=== PATIENT | female | born 1990 | race Caucasian/White ===

== ENCOUNTER 2016-10-18 23:00 | Emergency (ER) | payer MEDICAID ==
[~2016-10-18] VITALS: Ht 157.5 cm; Wt 63.5 kg
[~2016-10-18 23:00] MED LIST: PRENATAL1 TA3 PO
[2016-10-18 23:13] VITALS: BP 110/69
--- NOTE | 2016-10-18 23:39 | NUR ---
Keira archer in [facility] - 10/18/16 at 2341 by TRENA PATIENT AMBULATED TO ER OF 1
--- NOTE | 2016-10-18 23:40 | NUR ---
TO ER OF1
--- NOTE | 2016-10-18 23:41 | NUR ---
26 Y/O HERE C/O FREQUENCY AND BURNING WITH URINATION X 1 DAY. DENIES ANY N/V, FEVER, FLANK PAIN OR CHILLS. NO DISTRESS NOTED AT THIS TIME. ER MD EVALUATING PT.
--- NOTE | 2016-10-18 23:41 | NUR ---
Patient being evaluated by physician.
[2016-10-18] MEDS ORDERED: PHENAZOPYRIDINE 100 MG TAB PO ONE (23:45)
[2016-10-18] MEDS ORDERED: SULFAMETH/TRIMETH DS 800/160MG 1 TAB PO ONE (23:45)
[2016-10-19 00:02] VITALS: BP 110/69
--- NOTE | 2016-10-19 00:02 | NUR ---
Patient discharged with v/s stable. Written and verbal after care instructions given and explained. Patient alert, oriented and verbalized understanding of instructions. Ambulatory with steady gait. All questions addressed prior to discharge. ID band removed. Patient advised to follow up with PMD. Rx of BACTRIM AND PYRIDIUM given. Patient educated on indication of medication including possible reaction and side effects. Opportunity to ask questions provided and answered.
== END 2016-10-19 00:02 | disposition home or self-care (01) ==
LOC: MED 23:00
DX: N39.0 Urinary tract infection, site not specified (principal); R03.0 Elevated blood-pressure reading, without diagnosis of hypertension

== ENCOUNTER 2017-03-07 11:22 | Emergency (ER) | payer MEDICAID ==
[~2017-03-07] VITALS: Ht 160 cm; Wt 66.7 kg
[~2017-03-07 11:22] MED LIST changes: +PREN-156 PO; -PRENATAL1 TA3 PO
[2017-03-07 11:26] VITALS: BP 128/75
--- NOTE | 2017-03-07 12:17 | NUR ---
APATIENT PRESENTS TO ED WITH c/o extremely anxious, flight of ideas, palpitations, tremulous, sob, nausea x 1 hr ago;hx OF anxiety; PT STATES SHE'S NERVOUS AND HER FEET KEEPS ON SHAKING; SKIN IS PINK/WARM/DRY; AAOX4 WITH EVEN AND STEADY GAIT; LUNGS CLEAR BL; HR EVEN AND REGULAR; DENIES FEVER AND COUGH AT THIS TIME; PATIENT STATES PAIN OF 6/10 CP AT THIS TIME;PATIENT POSITIONED FOR COMFORT; HOB ELEVATED; BEDRAILS UP X2; BED DOWN.ALL MONITORS IN PLACED.
--- NOTE | 2017-03-07 12:40 | NUR ---
Keira archer in ED - 03/07/17 at 1300 by DANIEL ER MD AT BEDSIDE.
--- NOTE | 2017-03-07 12:48 | NUR ---
AMBULATED TO THECRESTROOM ACCOMAPNIED BY HER BOYFRIEND.
--- NOTE | 2017-03-07 13:00 | NUR ---
JACK FLANAGAN AT BEDSIDE.
[2017-03-07 13:07] VITALS: BP 115/73
== END 2017-03-07 13:06 | disposition home or self-care (01) ==
LOC: MED 11:22
DX: R00.2 Palpitations (principal); R07.9 Chest pain, unspecified
CPT/HCPCS: 81002; 81025; 93005; 99283

== ENCOUNTER 2018-07-30 20:03 | Emergency (ER) | payer MEDICAID ==
[~2018-07-30] VITALS: Ht 157.5 cm; Wt 66.7 kg
[2018-07-30 20:10] VITALS: BP 154/91
--- NOTE | 2018-07-30 20:13 | NUR ---
EKG PERFORMED IN TRIAGE ROOM WITH BLINDS DRAWN AND RENAY LAUGHLIN
--- NOTE | 2018-07-30 20:20 | NUR ---
pt to lobby steady gait
--- NOTE | 2018-07-30 20:43 | NUR ---
AMBULATED TO ER BED 6
--- NOTE | 2018-07-30 20:45 | NUR ---
PT PRESENTED ER WITH C/O VHEST, ARM PAIN X 5 DAYS. PT STATED THAT SHE HAS ARM PAIN BILATERAL AND RADIATES TO THE CHEST. PT STATES IT IS TENDER TO TOUCH, FEELS LIKE PALPUTATIONS, TIRES QUICKLY, HAS DRY MOUTH. PT DENIES FEVER AND ABD PAIN. PT IS A/O X 4. PT HAS NO PREVIOUS MEDICAL HX AND NKA. SKIN IS PINK/WARM/DRY;STEADY GAIT; LUNGS CLEAR BL; VSS; PATIENT POSITIONED FOR COMFORT; HOB ELEVATED; BEDRAILS UP X2; BED DOWN. ER MD MADE AWARE OF PT STATUS. Addendum: 07/30/18 at 2124 by [email or web address] PT PRESENTED ER WITH C/O CHEST, ARM PAIN X 5 DAYS. PT STATED THAT SHE HAS ARM PAIN BILATERAL AND RADIATES TO THE CHEST. PT STATES IT IS TENDER TO TOUCH, FEELS LIKE PALPUTATIONS, TIRES QUICKLY, HAS DRY MOUTH. PT DENIES FEVER AND ABD PAIN. PT IS A/O X 4. PT HAS NO PREVIOUS MEDICAL HX AND NKA. SKIN IS PINK/WARM/DRY;STEADY GAIT; LUNGS CLEAR BL; VSS; PATIENT POSITIONED FOR COMFORT; HOB ELEVATED; BEDRAILS UP X2; BED DOWN. ER MD MADE AWARE OF PT STATUS.
--- NOTE | 2018-07-30 21:30 | NUR ---
PT SITTING UP IN BED, VITALS STABLE
[2018-07-30] MEDS ORDERED: KETOROLAC 30 MG/ML VIAL IM ONE (21:40)
[2018-07-30 22:56] LABS: BASOPHILS % (AUTO) 0.4 % (0.0-2.0); EOSINOPHILS # (AUTO) 0.1 K/uL (0-0.4); EOSINOPHILS % (AUTO) 1.3 % (0.0-4.0); HEMATOCRIT 36.9 % (36-48); HEMOGLOBIN 12.3 g/dL (12.0-16.0); LYMPHOCYTES # (AUTO) 2.2 K/uL (2.5-16.5); LYMPHOCYTES % (AUTO) 25.6 % (20.5-51.1); MEAN CORPUSCULAR HEMOGLOBIN 29 pg (27-31); MEAN CORPUSCULAR HGB CONC 33 g/dL (33-37); MEAN CORPUSCULAR VOLUME 87.8 fL (80-94); MONOCYTES # (AUTO) 0.5 K/uL (0.8-1.0); MONOCYTES % (AUTO) 5.6 % (1.7-9.3); NEUTROPHILS # (AUTO) 5.9 K/uL (1.8-7.7); NEUTROPHILS % (AUTO) 67.1 % (42.2-75.2); PLATELET COUNT (AUTO) 193 K/uL (140-450); RED CELL DISTRIBUTION WIDTH 12.9 % (11.6-13.7); WHITE BLOOD COUNT (AUTO) 8.7 K/uL (4.8-10.8)
[2018-07-30 23:15] LABS: ALBUMIN 3.9 g/dL (3.4-5.0); ANION GAP 14.2 (8-16); CARBON DIOXIDE 27.6 mmol/L (21-32); CREATININE 0.7 mg/dL (0.6-1.3); POTASSIUM 3.8 mmol/L (3.5-5.1); TOTAL BILIRUBIN 0.7 mg/dL (0.0-1.0)
[2018-07-30 23:19] LABS: CREATINE KINASE MB 0.3 ng/mL (0-3.6)
[2018-07-30 23:45] VITALS: BP 104/68
--- NOTE | 2018-07-30 23:45 | NUR ---
Patient discharged with v/s stable. Written and verbal after care instructions given and explained. Patient alert, oriented and verbalized understanding of instructions. Ambulatory with steady gait. All questions addressed prior to discharge. ID band removed. Patient advised to follow up with PMD. Rx of NAPROSYN AND ATIVAN WAS given. Patient educated on indication of medication including possible reaction and side effects. Opportunity to ask questions provided and answered.
--- NOTE | 2018-07-31 00:29 | NUR ---
Keira archer in ED - 07/31/18 at 0054 by JOSEFINA TEMP 97.7 AXILLARY AT THIS TIME.
== END 2018-07-30 23:45 | disposition home or self-care (01) ==
LOC: MED 20:03
DX: R07.89 Other chest pain (principal); R51 Headache; R42 Dizziness and giddiness; R11.0 Nausea; Z87.442 Personal history of urinary calculi
CPT/HCPCS: 36415; 71045; 80053; 81002; 81025; 82550; 82553; 84484; 85025; 93005; 96372; 99284; J1885; Q0092

== ENCOUNTER 2018-08-03 05:50 | Emergency (ER) | payer MEDICAID ==
[~2018-08-03] VITALS: Ht 157.5 cm; Wt 68.2 kg
[2018-08-03 05:57] VITALS: BP 101/61
[2018-08-03] MEDS ORDERED: ATI.5 PO (06:01)
--- NOTE | 2018-08-03 06:05 | NUR ---
PT BIB FAMILY C/O UTI S/S X 1DAY. PT DENIES N/V/D; SKIN IS INTACT, PINK/WARM/DRY; AAOX4, PERRL, WITH EVEN AND STEADY GAIT; LUNGS CLEAR BL, BREATHING UNLABORED; HR EVEN AND REGULAR, BL PERIPHERAL PULSES PRESENT; BS ACTIVE X4, NO TENDERNESS TO PALPATION. PT DENIES ANY FEVER, CP, SOB, OR COUGH AT THIS TIME; PT STATES 4/10 PAIN AT THIS TIME; VSS; PATIENT POSITIONED FOR COMFORT; HOB ELEVATED; BEDRAILS UP X2; BED DOWN.
--- NOTE | 2018-08-03 06:05 | NUR ---
PT TAKEN TO BED 2
--- NOTE | 2018-08-03 06:08 | NUR ---
Dr. Mandel evaluating patient at bedside.
[2018-08-03] MEDS ORDERED: PHENAZOPYRIDINE 100 MG TAB PO ONE (06:10)
[2018-08-03] MEDS ORDERED: SULFAMETH/TRIMETH DS 800/160MG 1 TAB PO ONE (06:10)
[2018-08-03 06:51] VITALS: BP 100/62
--- NOTE | 2018-08-03 06:52 | NUR ---
Patient discharged with v/s stable. Written and verbal after care instructions given and explained. Patient alert, oriented and verbalized understanding of instructions. Ambulatory with steady gait. All questions addressed prior to discharge. ID band removed. Patient advised to follow up with PMD. Rx of bactrim ds, pyridium given. Patient educated on indication of medication including possible reaction and side effects. Opportunity to ask questions provided and answered.
== END 2018-08-03 06:52 | disposition home or self-care (01) ==
LOC: MED 05:50
DX: N39.0 Urinary tract infection, site not specified (principal); Z79.899 Other long term (current) drug therapy
CPT/HCPCS: 81002; 81025; 99283

== ENCOUNTER 2018-08-11 22:30 | Emergency (ER) | payer MEDICAID ==
[~2018-08-11] VITALS: Ht 157.5 cm; Wt 68.0 kg
[~2018-08-11 22:30] MED LIST changes: +ATI.5 PO; -PREN-156 PO
[2018-08-11 22:39] VITALS: BP 98/64
[2018-08-11 23:24] LABS: APPEARANCE,URINE HAZY (CLEAR); BILIRUBIN,URINE NEGATIVE (NEGATIVE); BLOOD, URINE TRACE-I (NEGATIVE); COLOR,URINE YELLOW (YELLOW); LEUKOCYTE ESTERASE ,URINE TRACE (NEGATIVE); NITRITE, URINE POSITIVE (NEGATIVE); UGLUCOSE NEGATIVE (NEGATIVE)
[2018-08-11 23:34] LABS: RBC,URINE 0-5 (RARE) /HPF (0-5); WBC,URINE 20-60 /HPF (0-5)
[2018-08-12] MEDS ORDERED: cefTRIAXone 1,000 MG in LIDOCAINE MPF 1% - 5 mL VIAL 2.1 ML IM ONE (01:25)
[2018-08-12 01:54] VITALS: BP 108/70
== END 2018-08-12 01:54 | disposition home or self-care (01) ==
LOC: MED 22:30
DX: N39.0 Urinary tract infection, site not specified (principal); F41.0 Panic disorder [episodic paroxysmal anxiety]; Z79.899 Other long term (current) drug therapy
CPT/HCPCS: 81001; 81025; 87086; 96372; 99283; J0696; J2001; 87186

== ENCOUNTER 2018-12-14 17:50 | Emergency (ER) | payer MEDICAID ==
[~2018-12-14] VITALS: Ht 157.5 cm; Wt 65.8 kg
[2018-12-14 17:50] VITALS: BP 134/73
--- NOTE | 2018-12-14 18:03 | NUR ---
Patient ambulated to bed 7. RN evaluating patient at bedside.
--- NOTE | 2018-12-14 18:15 | NUR ---
28 YO/F BIB SELF WITH CHIEF C/O INTERMITTENT CHEST PAIN X2 WEEKS (PRESSURE/TIGHTNESS LASTING APPROX 2-3 SECS). PT DENIES ANY PAIN AT THIS TIME. COUGH PRESENT WITH WHITE PLEGM. CLEAR LUNG SOUNDS BILATERALLY. DENIES SOB. PT NOTED WITH CHILLS, TEMP 98.6.
[2018-12-14] MEDS ORDERED: ALUMINUM HYD/MAG/SIMETHICONE 30 ML UDC PO ONE (18:20)
[2018-12-14] MEDS ORDERED: FAMOTIDINE 20 MG TAB PO ONE (18:20)
--- NOTE | 2018-12-14 19:02 | NUR ---
X RAY AT BEDSIDE
--- NOTE | 2018-12-14 19:12 | NUR ---
Pt report given to RENAY Cole. Transfer of care at this time.
[2018-12-14] MEDS ORDERED: LORazepam 1 MG TAB PO ONE (19:45)
--- NOTE | 2018-12-14 19:52 | NUR ---
PT REFUSED MEDICATION AT THIS TIME, ER MD AWARE.
[2018-12-14 20:14] LABS: ANION GAP 8.9 (8-16); CARBON DIOXIDE 29.7 mmol/L (21-32); CREATININE 0.6 mg/dL (0.6-1.3); POTASSIUM 3.6 mmol/L (3.5-5.1)
--- NOTE | 2018-12-14 21:15 | NUR ---
Patient discharged with v/s stable. Pateint states she is ready to go home, patient acting appropriatly. Patient states 0/10 pain at this time. Written and verbal after care instructions given and explained. Patient alert, oriented and verbalized understanding of instructions. Ambulatory with steady gait. All questions addressed prior to discharge. ID band removed. Patient advised to follow up with PMD. Rx of Guaiatussin, and Mylanta given. Patient educated on indication of medication including possible reaction and side effects. Opportunity to ask questions provided and answered.
[2018-12-14 21:18] VITALS: BP 112/73
== END 2018-12-14 21:15 | disposition home or self-care (01) ==
LOC: MED 17:50
DX: R07.89 Other chest pain (principal); F41.9 Anxiety disorder, unspecified; Z79.899 Other long term (current) drug therapy
CPT/HCPCS: 36415; 71045; 80048; 81025; 85379; 93005; 99284; Q0092

== ENCOUNTER 2019-04-11 11:11 | Emergency (ER) | payer MEDICAID ==
[~2019-04-11] VITALS: Ht 157.5 cm; Wt 64.1 kg
[2019-04-11 11:18] VITALS: BP 118/82
[2019-04-11] MEDS ORDERED: ONDANSETRON 4 MG/2 ML VIAL IVP ONE (12:25)
[2019-04-11] MEDS ORDERED: MORPHINE SULFATE 4 MG/ML SYR IVP ONE (12:25)
--- NOTE | 2019-04-11 12:36 | NUR ---
PT PRESENTS TO ED WITH C/O ABD PAIN SINCE 03:00 THIS MORNING. PT REPORTS BURNING EPIGASTRIC PAIN AT 10/10, TX W/ ANTACID W/ NO RELIEF. REPORTS N/V/D. DENIES FEVER; AFEBRILE AT THIS TIME. MEDHX:DENIES RX:VITAMIN D
[2019-04-11 12:48] LABS: BASOPHILS % (AUTO) 0.2 % (0.0-2.0); EOSINOPHILS % (AUTO) 0.3 % (0.0-4.0); HEMATOCRIT 38.9 % (36-48); LYMPHOCYTES # (AUTO) 1.1 K/uL (2.5-16.5); LYMPHOCYTES % (AUTO) 16.9 % (20.5-51.1); MEAN CORPUSCULAR HEMOGLOBIN 30 pg (27-31); MEAN CORPUSCULAR HGB CONC 33 g/dL (33-37); MEAN CORPUSCULAR VOLUME 89.2 fL (80-94); MONOCYTES # (AUTO) 0.3 K/uL (0.8-1.0); MONOCYTES % (AUTO) 4.9 % (1.7-9.3); NEUTROPHILS % (AUTO) 77.7 % (42.2-75.2); PLATELET COUNT (AUTO) 212 K/uL (140-450); RED BLOOD CELL COUNT(AUTO) 4.37 MIL/uL (4.20-5.40); RED CELL DISTRIBUTION WIDTH 13.8 % (11.6-13.7); WHITE BLOOD COUNT (AUTO) 6.4 K/uL (4.8-10.8)
[2019-04-11 12:50] LABS: APPEARANCE,URINE CLEAR (CLEAR); BILIRUBIN,URINE NEGATIVE (NEGATIVE); BLOOD, URINE NEGATIVE (NEGATIVE); COLOR,URINE YELLOW (YELLOW); LEUKOCYTE ESTERASE ,URINE NEGATIVE (NEGATIVE); NITRITE, URINE NEGATIVE (NEGATIVE); UGLUCOSE NEGATIVE (NEGATIVE)
[2019-04-11 13:20] LABS: CREATININE 0.8 mg/dL (0.6-1.3)
[2019-04-11 14:34] VITALS: BP 103/61
--- NOTE | 2019-04-11 14:35 | NUR ---
Patient discharged with v/s stable. Written and verbal after care instructions given and explained. Patient alert, oriented and verbalized understanding of instructions. Carried with steady gait. All questions addressed prior to discharge. ID band removed. Patient advised to follow up with PMD. Rx of ESOMEPRAZOLE given. Patient educated on indication of medication including possible reaction and side effects. Opportunity to ask questions provided and answered.
== END 2019-04-11 14:35 | disposition home or self-care (01) ==
LOC: MED 11:11
DX: R10.13 Epigastric pain (principal); Z79.899 Other long term (current) drug therapy; Z88.6 Allergy status to analgesic agent
CPT/HCPCS: 36415; 76705; 80053; 81003; 81025; 82150; 83690; 84703; 85025; 96374; 96375; 99284; J2270; J2405; Q0092

== ENCOUNTER 2020-08-03 07:06 | Emergency (ER) | payer MEDICAID ==
[~2020-08-03] VITALS: Ht 157.5 cm; Wt 64.1 kg
[2020-08-03 07:23] VITALS: BP 101/67
--- NOTE | 2020-08-03 07:32 | NUR ---
PT ABLE TO PROVIDE URINE SAMPLE AT THIS TIME
--- NOTE | 2020-08-03 07:38 | NUR ---
30YO F BIB SELF C/O INTERMITTENT LOWER ABDOMINAL PAIN AND DYSURIA X 2 WEEKS. PT DENIES N/V/D; LUNGS CLEAR BL, BREATHING UNLABORED; HR EVEN AND REGULAR, BS ACTIVE X4, NO TENDERNESS TO PALPATION; PT DENIES ANY FEVER, CP, SOB, OR COUGH AT THIS TIME; PT STATES 0/10 PAIN AT THIS TIME; VSS; PATIENT POSITIONED FOR COMFORT; HOB ELEVATED; BEDRAILS UP X2; BED DOWN. PMH: DENIES ALLERGY: ACETAMINOPHEN
[2020-08-03 08:57] VITALS: BP 101/67
--- NOTE | 2020-08-03 08:57 | NUR ---
Patient discharged with v/s stable. Written and verbal after care instructions given and explained. Patient alert, oriented and verbalized understanding of instructions. Ambulatory with steady gait. All questions addressed prior to discharge. ID band removed. Patient advised to follow up with PMD. Rx of bactrim & pyridium given. Patient educated on indication of medication including possible reaction and side effects. Opportunity to ask questions provided and answered.
== END 2020-08-03 08:57 | disposition home or self-care (01) ==
LOC: MED 07:06
DX: N39.0 Urinary tract infection, site not specified (principal); Z79.899 Other long term (current) drug therapy; Z88.8 Allergy status to other drugs, medicaments and biological substances
CPT/HCPCS: 81002; 81025; 99282

== ENCOUNTER 2022-07-02 14:28 | Emergency (ER) | payer MEDICAID ==
[~2022-07-02] VITALS: Ht 157.5 cm; Wt 65.8 kg
[2022-07-02 14:33] VITALS: BP 141/74
[2022-07-02] MEDS ORDERED: DEXAMETHASONE 4 MG TAB PO ONE (14:55)
[2022-07-02] MEDS ORDERED: diphenhydrAMINE 50 MG CAP PO ONE (14:55)
[2022-07-02] MEDS ORDERED: DEXAMETHASONE 4 MG TAB ONE (15:01)
--- NOTE | 2022-07-02 15:06 | NUR ---
32/F WALKED IN C/O RED DOTS ON TONGUE, ITCHY THROAT, AND DIFFICULTY BREATING AFTER EATING FRUIT TART. PT 98% ON ROOM AIR. AAO4, AMBULATORY. NO TONGUE SWELLING NOTED. PMH:DENIES ALLERGIES: MORPHINE
--- NOTE | 2022-07-02 16:00 | NUR ---
Patient discharged with v/s stable. Written and verbal after care instructions given and explained. Patient verbalized understanding. Ambulatory with steady gait. All questions addressed prior to discharge. Advised to follow up with PMD.
== END 2022-07-02 16:00 | disposition home or self-care (01) ==
LOC: MED 14:28
DX: Z76.1 Encounter for health supervision and care of foundling (principal); T78.1XXA Other adverse food reactions, not elsewhere classified, initial encounter; X58.XXXA Exposure to other specified factors, initial encounter
CPT/HCPCS: 99283; Q0163

== ENCOUNTER 2023-06-19 14:31 | Emergency (ER) | payer MEDICAID ==
[~2023-06-19] VITALS: Ht 157.5 cm; Wt 69.1 kg
[2023-06-19 15:00] VITALS: BP 109/66; PULSE 83; RESP 20; TEMP 98.6; O2SAT 98
[2023-06-19 15:37] LABS: APPEARANCE,URINE CLEAR (CLEAR); BILIRUBIN,URINE NEGATIVE (NEGATIVE); BLOOD, URINE NEGATIVE (NEGATIVE); COLOR,URINE YELLOW (YELLOW); LEUKOCYTE ESTERASE ,URINE NEGATIVE (NEGATIVE); NITRITE, URINE NEGATIVE (NEGATIVE); PH,URINE 6.5 (5.0-9.0); PROTEIN,URINE NEGATIVE (NEGATIVE); UGLUCOSE NEGATIVE (NEGATIVE); UROBILINOGEN,URINE 0.2 EU/dL (0.2 - 1)
[2023-06-19 16:11] LABS: BASOPHILS % (AUTO) 0.2 % (0.0-2.0); EOSINOPHILS # (AUTO) 0.1 K/uL (0-0.4); EOSINOPHILS % (AUTO) 1.8 % (0.0-4.0); HEMATOCRIT 38.4 % (36-48); HEMOGLOBIN 12.7 g/dL (12.0-16.0); LYMPHOCYTES # (AUTO) 1.6 K/uL (2.5-16.5); LYMPHOCYTES % (AUTO) 21.7 % (20.5-51.1); MEAN CORPUSCULAR HEMOGLOBIN 29 pg (27-31); MEAN CORPUSCULAR HGB CONC 33 g/dL (33-37); MEAN CORPUSCULAR VOLUME 88.5 fL (80-94); MONOCYTES # (AUTO) 0.5 K/uL (0.8-1.0); MONOCYTES % (AUTO) 6.4 % (1.7-9.3); NEUTROPHILS # (AUTO) 5.3 K/uL (1.8-7.7); NEUTROPHILS % (AUTO) 69.9 % (42.2-75.2); PLATELET COUNT (AUTO) 256 K/uL (140-450); RED BLOOD CELL COUNT(AUTO) 4.34 MIL/uL (4.20-5.40); RED CELL DISTRIBUTION WIDTH 14.7 % (11.6-13.7); WHITE BLOOD COUNT (AUTO) 7.6 K/uL (4.8-10.8)
[2023-06-19 16:25] LABS: ANION GAP 11.6 (8-16); CARBON DIOXIDE 30.7 mmol/L (21-32); CREATININE 0.8 mg/dL (0.6-1.3); POTASSIUM 4.3 mmol/L (3.5-5.1); TOTAL BILIRUBIN 0.6 mg/dL (0.0-1.0); TOTAL PROTEIN, SERUM 8.1 g/dL (6.4-8.2)
[2023-06-19 16:27] LABS: INR 0.94 (0.8-1.2); PARTIAL THROMBOPLASTIN TIME 25.3 secs (22-35.6); PROTHROMBIN TIME 9.9 secs (10.8-13.4)
[2023-06-19 18:13] VITALS: BP 112/67; PULSE 79; RESP 18; TEMP 98.6; O2SAT 98
== END 2023-06-19 18:16 | disposition home or self-care (01) ==
LOC: MED 14:31
DX: D25.9 Leiomyoma of uterus, unspecified (principal); Z79.899 Other long term (current) drug therapy; Z88.5 Allergy status to narcotic agent; Z88.8 Allergy status to other drugs, medicaments and biological substances
CPT/HCPCS: 36415; 76856; 80053; 81003; 81025; 85025; 85610; 85730; 99284

== ENCOUNTER 2023-11-18 09:31 | Emergency (ER) | payer MEDICAID, OTHER ==
[~2023-11-18] VITALS: Ht 157.5 cm; Wt 68.5 kg
[2023-11-18 09:42] VITALS: BP 114/76; PULSE 84; RESP 16; TEMP 98; O2SAT 99
== END 2023-11-18 10:47 | disposition home or self-care (01) ==
LOC: MED 09:31
DX: R21 Rash and other nonspecific skin eruption (principal); Z79.899 Other long term (current) drug therapy; Z88.5 Allergy status to narcotic agent; Z88.8 Allergy status to other drugs, medicaments and biological substances
CPT/HCPCS: 81002; 81025; 99282

== ENCOUNTER 2024-01-10 20:07 | Emergency (ER) | payer OTHER ==
[~2024-01-10] VITALS: Ht 157.5 cm; Wt 68.0 kg
[2024-01-10 20:32] VITALS: BP 112/61; PULSE 122; RESP 20; TEMP 97.6; O2SAT 98
[2024-01-10 21:36] LABS: BASOPHILS % (AUTO) 0.4 % (0.0-2.0); EOSINOPHILS # (AUTO) 0.1 K/uL (0-0.4); EOSINOPHILS % (AUTO) 1.8 % (0.0-4.0); HEMATOCRIT 34.4 % (36-48); HEMOGLOBIN 11.8 g/dL (12.0-16.0); LYMPHOCYTES # (AUTO) 1.6 K/uL (2.5-16.5); LYMPHOCYTES % (AUTO) 21.3 % (20.5-51.1); MEAN CORPUSCULAR HEMOGLOBIN 30 pg (27-31); MEAN CORPUSCULAR HGB CONC 34 g/dL (33-37); MEAN CORPUSCULAR VOLUME 88.2 fL (80-94); MONOCYTES # (AUTO) 0.6 K/uL (0.8-1.0); NEUTROPHILS # (AUTO) 5.1 K/uL (1.8-7.7); NEUTROPHILS % (AUTO) 68.5 % (42.2-75.2); PLATELET COUNT (AUTO) 215 K/uL (140-450); RED CELL DISTRIBUTION WIDTH 14.1 % (11.6-13.7); WHITE BLOOD COUNT (AUTO) 7.5 K/uL (4.8-10.8)
[2024-01-10 21:56] LABS: ANION GAP 10.6 (8-16); CARBON DIOXIDE 29.1 mmol/L (21-32); CREATININE 0.9 mg/dL (0.6-1.3); POTASSIUM 3.7 mmol/L (3.5-5.1)
[2024-01-10 22:15] VITALS: BP 117/72; PULSE 82; RESP 16; O2SAT 99
== END 2024-01-10 23:04 | disposition home or self-care (01) ==
LOC: MED 20:07
DX: R07.89 Other chest pain (principal); Z79.899 Other long term (current) drug therapy
CPT/HCPCS: 36415; 71045; 80048; 84484; 85025; 93005; 99285